=== PATIENT | male | born 1980 | race Caucasian/White ===

== ENCOUNTER 2022-06-02 12:27 | Observation (INO) ==
[2022-06-02 12:52] LABS: Basophils % 0.3 % (0.0-0.8); Eosinophils # 0.1 10*3/uL (0.0-0.87); Hematocrit 49.5 VOL% (42.0-52.0); Hemoglobin 16.4 GM/DL (14.0-18.0); Lymphocytes # 1.9 10*3/uL (1.4-4.0); Lymphocytes % 18.2 % (21.2-54.2); Mean Corpuscular HGB Conc 33.1 GM/DL (32-36); Mean Corpuscular Volume 90.2 FL (87-102); Monocytes # 0.4 10*3/uL (0.11-0.8); Monocytes % 4.1 % (1.7-12.7); Neutrophils % 75.4 % (38.7-73.9); Platelet Count 218 T/CUMM (130-400); Red Blood Count 5.49 MC/CUMM (3.8-5.5); Red Cell Distribution Width 12.5 % (9.3-17.3); White Blood Count 10.3 T/CUMM (4-12)
[2022-06-02 13:13] LABS: Alanine Aminotransferase 53 U/L (16-61); Albumin 4.2 G/DL (3.4-5.0); Alkaline Phosphatase 65 U/L (45-117); Aspartate Amino Transferase 31 U/L (0-37); Bilirubin,Total < 0.39 MG/DL (0.20-1.00); Blood Urea Nitrogen 15 MG/DL (7-18); Calcium 9.4 MG/DL (8.5-10.1); Carbon Dioxide 26 MMOL/L (21-32); Chloride 107 MMOL/L (98-107); Glucose 130 MG/DL (74-106); Osmolality,Calculated 279.5 MOS/KG (273-304); Potassium 3.7 MMOL/L (3.5-5.1); Sodium 139 MMOL/L (136-145); Total Protein 8.1 G/DL (6.4-8.2)
[2022-06-02] MEDS ORDERED: ASPIRIN 325 MG TABLET PO STA (13:24)
[2022-06-02] MEDS ORDERED: NITROGLYCERIN 2% OINT 1 INCH/GM PACK TOP STA (13:25)
[2022-06-02] MEDS ORDERED: ONDANSETRON 4 MG/2 ML VIAL IV ONE (13:25)
[2022-06-02] MEDS ORDERED: MORPHINE 2 MG/1 ML SYRINGE IV ONE (13:25)
[2022-06-02] MEDS ORDERED: ZALEPLON 5 MG CAPSULE PO PRN (14:11)
[2022-06-02] MEDS ORDERED: ONDANSETRON 4 MG/2 ML VIAL IV PRN (14:11)
[2022-06-02] MEDS ORDERED: hydrALAZINE 20 MG/1 ML VIAL IV PRN (14:11)
[2022-06-02] MEDS ORDERED: ALUMINUM/MAGNES/SIMETH MAX STR 30 ML UDCUP PO PRN (14:11)
[2022-06-02] MEDS ORDERED: BISACODYL 5 MG TABLET PO PRN (14:11)
[2022-06-02] MEDS ORDERED: ENOXAPARIN 80 MG/0.8 ML SYRINGE SUBCUT STA (14:14)
[2022-06-02] MEDS ORDERED: DIAZEPAM 5 MG TABLET PO ONE (14:42)
[2022-06-02] MEDS ORDERED: diphenhydrAMINE CAP 25 MG CAPSULE PO ONE (14:42)
[2022-06-02] MEDS ORDERED: NITROGLYCERIN SL 0.4 MG TABLET SL PRN (14:43)
[2022-06-02] MEDS: NITROGLYCERIN 2% OINT 1 INCH/GM PACK TOP SCH ×2 (14:47→22:15)
[2022-06-02] MEDS: carvediloL 6.25 MG TABLET PO SCH ×2 (14:48→22:15)
[2022-06-02] MEDS ORDERED: VERAPAMIL 5 MG/2 ML VIAL ONE (15:29)
[2022-06-02] MEDS ORDERED: NITROGLYCERIN DRIP 50 MG/250 ML BOTTLE IV ONE (15:29)
[2022-06-02] MEDS ORDERED: MIDAZOLAM 2 MG/2 ML VIAL ONE ×2 (15:30→15:59)
[2022-06-02] MEDS ORDERED: fentaNYL 100 MCG/2 ML VIAL ONE (15:30)
[2022-06-02] MEDS ORDERED: TIROFIBAN 5,000 MCG/100 ML PREMIX IV ONE (15:54)
[2022-06-02] MEDS ORDERED: TIROFIBAN 5,000 MCG/100 ML PREMIX IV SCH (15:58)
[2022-06-02] MEDS ORDERED: TICAGRELOR 90 MG TABLET ONE (16:24)
[2022-06-02] MEDS ORDERED: ACETAMINOPHEN 325 MG TABLET PO PRN (16:28)
[2022-06-02] MEDS: PANTOPRAZOLE 40 MG TABLET PO SCH (17:55)
[2022-06-02] MEDS: SODIUM CHLORIDE 0.45% 1,000 ML IV SCH (18:44)
[2022-06-02] MEDS ORDERED: ROSUVASTATIN 20 MG TABLET PO SCH (21:00)
[2022-06-02] MEDS: TICAGRELOR 90 MG TABLET PO SCH (22:15)
[2022-06-03] MEDS: NITROGLYCERIN 2% OINT 1 INCH/GM PACK TOP SCH ×2 (02:54→08:26)
[2022-06-03 04:58] LABS: Basophils % 0.3 % (0.0-0.8); Eosinophils # 0.2 10*3/uL (0.0-0.87); Eosinophils % 1.7 % (0.00-10.9); Hematocrit 43.2 VOL% (42.0-52.0); Hemoglobin 14.8 GM/DL (14.0-18.0); Immature Granulocytes % 0.5 %; Immature Granulocytes Absolute 0.05 #; Lymphocytes # 2.7 10*3/uL (1.4-4.0); Lymphocytes % 24.2 % (21.2-54.2); Mean Corpuscular HGB Conc 34.3 GM/DL (32-36); Mean Corpuscular Volume 90.4 FL (87-102); Mean Platelet Volume 11.7 FL (9.6-12.0); Monocytes # 0.7 10*3/uL (0.11-0.8); Monocytes % 5.9 % (1.7-12.7); Neutrophils % 67.4 % (38.7-73.9); Platelet Count 217 T/CUMM (130-400); Red Blood Count 4.78 MC/CUMM (3.8-5.5); Red Cell Distribution Width 12.7 % (9.3-17.3)
[2022-06-03 05:29] LABS: Calcium 8.2 MG/DL (8.5-10.1); Osmolality,Calculated 279.4 MOS/KG (273-304); Potassium 3.7 MMOL/L (3.5-5.1); Risk Ratio 8.22; VLDL Cholesterol 86.2 MG/DL
[2022-06-03] MEDS: carvediloL 6.25 MG TABLET PO SCH (08:26)
[2022-06-03] MEDS: PANTOPRAZOLE 40 MG TABLET PO SCH (08:26)
[2022-06-03] MEDS: TICAGRELOR 90 MG TABLET PO SCH (08:26)
[2022-06-03] MEDS: SODIUM CHLORIDE 0.45% 1,000 ML IV SCH ×2 (08:28→08:30)
[2022-06-03] MEDS ORDERED: ASPIRIN EC 81 MG TABLET PO SCH (09:00)
[2022-06-03 11:17] VITALS: BP 122/82
== END 2022-06-03 12:01 | disposition home or self-care (01) ==
LOC: N.ED 12:27 → N.EDINP 12:27 → N.TELEN 15:02
PROVIDERS: ADMIT Internal Medicine Cardiovascular Disease; ATTEND Internal Medicine Cardiovascular Disease
PROC: CLCCHCL (ICD-10-PCS; 2022-06-02 15:45)